=== PATIENT | female | born 1995 | race Caucasian/White ===

== ENCOUNTER → 2022-07-25 | Outpatient (CLI) | payer OTHER ==
[~2022-07-25] MED LIST: FLUO10 PO; ONDA4 PO
[2022-07-27 08:12] LABS: CHLAMYDIA TRACHOMATIS, NAA Negative (Negative)
== END | disposition home or self-care (01) ==
LOC: LAB SHORT 10:40 → LAB 10:40
PROVIDERS: Registered Nurse Community Health
DX: Z34.01 Encounter for supervision of normal first pregnancy, first trimester (principal)
CPT/HCPCS: 87491; 87591

== ENCOUNTER 2022-08-03 03:23 | Day surgery (SDC) | payer OTHER ==
[2022-08-03] MEDS ORDERED: FLUO10 PO (11:28)
[2022-08-03] MEDS ORDERED: ONDA4 PO (11:29)
== END 2022-08-03 10:40 | disposition home or self-care (01) ==
LOC: ATC 03:23
DX: R11.2 Nausea with vomiting, unspecified (principal)
CPT/HCPCS: 96360; C1751; J7120

== ENCOUNTER 2022-08-09 02:41 | Day surgery (SDC) | payer OTHER ==
[~2022-08-09 02:41] MED LIST changes: +METO10 PO; +Phenergan25 M1 PO
== END 2022-08-09 12:15 | disposition home or self-care (01) ==
LOC: ATC 02:41
DX: R11.2 Nausea with vomiting, unspecified (principal)
CPT/HCPCS: 96360; J7120

== ENCOUNTER 2022-08-12 01:59 | Day surgery (SDC) | payer OTHER ==
--- NOTE | 2022-08-11 11:46 | NUR ---
PT RESCHEDULED HER APPOINTMENT FOR TOMORROW AT 0800.
== END 2022-08-12 09:15 | disposition home or self-care (01) ==
LOC: ATC 01:59
DX: O21.0 Mild hyperemesis gravidarum (principal); Z3A.00 Weeks of gestation of pregnancy not specified
CPT/HCPCS: 96360; J7120

== ENCOUNTER 2022-08-14 01:53 | Day surgery (SDC) | payer OTHER | END 2022-08-14 09:04 | disposition home or self-care (01) | DX: O21.0 Mild hyperemesis gravidarum (principal); O99.340 Other mental disorders complicating pregnancy, unspecified trimester; F32.A Depression, unspecified; Z3A.00 Weeks of gestation of pregnancy not specified ==

== ENCOUNTER 2022-08-16 00:18 | Day surgery (SDC) | payer OTHER | END 2022-08-16 15:12 | disposition home or self-care (01) | LOC: ATC 00:18 | DX: O21.0 Mild hyperemesis gravidarum (principal); Z3A.00 Weeks of gestation of pregnancy not specified; F32.A Depression, unspecified; O99.342 Other mental disorders complicating pregnancy, second trimester | CPT/HCPCS: 96361; 96374; J2765; J7120 ==

== ENCOUNTER 2022-08-18 00:16 | Day surgery (SDC) | payer OTHER ==
[2022-08-19] MEDS ORDERED: PROC5 PO (02:45)
== END 2022-08-18 15:41 | disposition home or self-care (01) ==
LOC: ATC 00:16
DX: O21.0 Mild hyperemesis gravidarum (principal); Z3A.00 Weeks of gestation of pregnancy not specified; O99.343 Other mental disorders complicating pregnancy, third trimester; F32.A Depression, unspecified
CPT/HCPCS: 96361; 96374; J2765; J7120

== ENCOUNTER 2022-08-18 23:28 | Emergency (ER) | payer OTHER ==
[~2022-08-18] VITALS: Ht 177.8 cm; Wt 104.3 kg
[2022-08-19 01:09] LABS: BASOPHILS ABSOLUTE AUTO 0.03 K/mm3 (0.00-0.23); BASOPHILS PERCENT AUTO 0 % (0-2); EOSINOPHILS ABSOLUTE AUTO 0.07 K/mm3 (0.00-0.68); EOSINOPHILS PERCENT AUTO 1 % (0-6); Hematocrit 35.7 % (33.0-51.0); Hemoglobin 12.4 g/dL (11.5-16.0); IMMATURE GRAN ABSOLUTE AUTO 0.05 K/mm3 (0.00-0.10); IMMATURE GRAN PERCENT AUTO 1 % (0-1); LYMPHOCYTES ABSOLUTE AUTO 1.58 K/mm3 (0.84-5.20); LYMPHOCYTES PERCENT AUTO 18 % (21-46); MONOCYTES ABSOLUTE AUTO 0.47 K/mm3 (0.16-1.47); MONOCYTES PERCENT AUTO 6 % (4-13); Mean Corpuscular HGB 30.5 pg (26.0-34.0); Mean Corpuscular HGB Conc 34.7 g/dL (31.5-36.5); Mean Corpuscular Volume 88 fL (80-100); Mean Platelet Volume 10.8 fL (9.1-12.4); NEUTROPHILS ABSOLUTE AUTO 6.37 K/mm3 (1.96-9.15); NEUTROPHILS PERCENT AUTO 74 % (41-73); Platelet Count 160 K/mm3 (150-400); RDW Coefficient Variation 13.6 % (11.7-14.2); RDW Standard Deviation 43.8 fL (35.1-46.3); Red Blood Cell Count 4.06 M/mm3 (3.80-5.20); White Blood Cell Count 8.57 K/mm3 (4.00-11.30)
[2022-08-19 01:25] LABS: Bun/Creatinine Ratio 20.1 (12.0-20.0); Calcium, Blood 9.3 mg/dL (8.5-10.1); Creatinine, Blood 0.55 mg/dL (0.40-1.00); Magnesium, Blood 1.8 mg/dL (1.6-2.4); Potassium, Blood 3.9 mmol/L (3.5-5.5)
[2022-08-19] MEDS ORDERED: PROC5 PO (02:45)
== END 2022-08-19 03:12 | disposition home or self-care (01) ==
LOC: ER 23:28
PROVIDERS: Emergency Medicine
DX: O21.1 Hyperemesis gravidarum with metabolic disturbance (principal); E86.0 Dehydration; Z3A.12 12 weeks gestation of pregnancy
CPT/HCPCS: 36415; 80048; 83735; 85025; J0780; J7120

== ENCOUNTER 2022-08-21 01:31 | Day surgery (SDC) | payer OTHER ==
[~2022-08-21 01:31] MED LIST changes: +PROC5 PO
== END 2022-08-21 11:40 | disposition home or self-care (01) ==
LOC: ATC 01:31
DX: O21.0 Mild hyperemesis gravidarum (principal); Z3A.00 Weeks of gestation of pregnancy not specified
CPT/HCPCS: 96361; 96374; J2765; J7120

== ENCOUNTER 2022-08-23 00:47 | Day surgery (SDC) | payer OTHER | END 2022-08-23 10:33 | disposition home or self-care (01) | LOC: ATC 00:47 | DX: O21.0 Mild hyperemesis gravidarum (principal); Z3A.00 Weeks of gestation of pregnancy not specified | CPT/HCPCS: J2765; J7120 ==

== ENCOUNTER 2022-08-25 00:17 | Day surgery (SDC) | payer OTHER | END 2022-08-25 10:40 | disposition home or self-care (01) | LOC: ATC 00:17 | DX: O21.0 Mild hyperemesis gravidarum (principal); Z3A.00 Weeks of gestation of pregnancy not specified; O99.342 Other mental disorders complicating pregnancy, second trimester; F32.A Depression, unspecified | CPT/HCPCS: J2765; J7120 ==

== ENCOUNTER 2022-08-28 13:15 | Day surgery (SDC) | payer OTHER | END 2022-08-28 14:50 | disposition home or self-care (01) | LOC: ATC 13:15 | DX: O21.0 Mild hyperemesis gravidarum (principal); O99.340 Other mental disorders complicating pregnancy, unspecified trimester; F32.A Depression, unspecified; Z3A.00 Weeks of gestation of pregnancy not specified | CPT/HCPCS: 96361; 96374; J2765; J7120 ==

== ENCOUNTER → 2022-08-29 | Outpatient (CLI) | payer OTHER | END | disposition home or self-care (01) | LOC: LAB SHORT 08:40 → LAB 08:40 | DX: Z34.01 Encounter for supervision of normal first pregnancy, first trimester (principal) | CPT/HCPCS: 87086 ==

== ENCOUNTER 2022-08-30 02:02 | Day surgery (SDC) | payer OTHER | END 2022-08-30 14:37 | disposition home or self-care (01) | LOC: ATC 02:02 | DX: O21.0 Mild hyperemesis gravidarum (principal); Z3A.00 Weeks of gestation of pregnancy not specified; O99.340 Other mental disorders complicating pregnancy, unspecified trimester; F32.A Depression, unspecified | CPT/HCPCS: 96361; 96374; J2765; J7120 ==

== ENCOUNTER 2022-09-01 02:25 | Day surgery (SDC) | payer OTHER | END 2022-09-01 16:41 | disposition home or self-care (01) | LOC: ATC 02:25 | DX: O21.0 Mild hyperemesis gravidarum (principal); Z3A.00 Weeks of gestation of pregnancy not specified; O99.340 Other mental disorders complicating pregnancy, unspecified trimester; F32.A Depression, unspecified | CPT/HCPCS: 96361; 96374; J2765; J7120 ==

== ENCOUNTER → 2022-09-29 | Outpatient (CLI) | payer OTHER ==
[2022-09-29 12:44] LABS: Source, Urine Clean Catch
[2022-09-29 13:36] LABS: Appearance, Urine Hazy (Clear); Bilirubin, Urine Neg (Neg); Blood, Urine 2+ (Neg); Color, Urine Yellow (P-Yellow); Glucose Qualitative, Urine Neg (Neg); Ketones, Urine Neg (Neg); Leukocyte Esterase, Urine 3+ (Neg); Nitrite, Urine Pos (Neg); Protein, Urine 1+ (Neg); Urobilinogen, Urine NORM (Normal)
[2022-09-29 13:56] LABS: Bacteria Many /hpf; Squamous Epithelial Cells Mod /hpf (Few)
[2022-09-29 13:57] LABS: Mucus Light (0-Heavy)
== END | disposition home or self-care (01) ==
LOC: LAB SHORT 12:42
PROVIDERS: Registered Nurse Community Health
DX: Z34.01 Encounter for supervision of normal first pregnancy, first trimester (principal)
CPT/HCPCS: 81001; 87086

== ENCOUNTER → 2022-12-06 | Outpatient (CLI) | payer OTHER ==
[2022-12-06 14:28] LABS: Hemoglobin 11.2 g/dL (11.5-16.0)
== END | disposition home or self-care (01) ==
LOC: LAB SHORT 10:10 → LAB 10:10
PROVIDERS: Registered Nurse Community Health
DX: Z34.01 Encounter for supervision of normal first pregnancy, first trimester (principal)
CPT/HCPCS: 82950; 85014; 85018

== ENCOUNTER → 2023-01-09 | Outpatient (CLI) | payer OTHER ==
[2023-01-09 15:43] LABS: BASOPHILS ABSOLUTE AUTO 0.01 K/mm3 (0.00-0.23); BASOPHILS PERCENT AUTO 0 % (0-2); EOSINOPHILS ABSOLUTE AUTO 0.03 K/mm3 (0.00-0.68); EOSINOPHILS PERCENT AUTO 0 % (0-6); Hematocrit 30.4 % (33.0-51.0); IMMATURE GRAN ABSOLUTE AUTO 0.05 K/mm3 (0.00-0.10); IMMATURE GRAN PERCENT AUTO 1 % (0-1); LYMPHOCYTES PERCENT AUTO 17 % (21-46); MONOCYTES ABSOLUTE AUTO 0.53 K/mm3 (0.16-1.47); MONOCYTES PERCENT AUTO 8 % (4-13); Mean Corpuscular HGB 29.3 pg (26.0-34.0); Mean Corpuscular HGB Conc 32.9 g/dL (31.5-36.5); Mean Corpuscular Volume 89 fL (80-100); NEUTROPHILS ABSOLUTE AUTO 4.96 K/mm3 (1.96-9.15); NEUTROPHILS PERCENT AUTO 74 % (41-73); RDW Coefficient Variation 14.5 % (11.7-14.2); RDW Standard Deviation 46.2 fL (35.1-46.3); Red Blood Cell Count 3.41 M/mm3 (3.80-5.20); White Blood Cell Count 6.68 K/mm3 (4.00-11.30)
[2023-01-09 16:47] LABS: Albumin, Blood 2.9 g/dL (3.4-5.0); Albumin/Globulin Ratio 0.7 (0.8-1.8); Bilirubin, Total 0.3 mg/dL (0.1-1.0); Calcium, Blood 9.3 mg/dL (8.5-10.1); Creatinine, Blood 0.53 mg/dL (0.40-1.00); Globulin, Blood 3.9 g/dL (2.2-4.0); Total Protein, Blood 6.8 g/dL (6.4-8.2)
== END | disposition home or self-care (01) ==
LOC: LAB SHORT 12:53
PROVIDERS: Registered Nurse Community Health
DX: R53.83 Other fatigue (principal); N39.8 Other specified disorders of urinary system
CPT/HCPCS: 80053; 85025

== ENCOUNTER → 2023-01-17 | Outpatient (CLI) | payer OTHER ==
[2023-01-17 15:09] LABS: Percent Saturation 10.9 % (15.0-50.0)
== END | disposition home or self-care (01) ==
LOC: LAB 13:02 → LAB SHORT 13:02
PROVIDERS: Registered Nurse Community Health
DX: O99.019 Anemia complicating pregnancy, unspecified trimester (principal)
CPT/HCPCS: 82728; 83540; 83550

== ENCOUNTER → 2023-02-05 | Outpatient (CLI) | payer OTHER | END | disposition home or self-care (01) | LOC: LAB 12:57 → LAB SHORT 12:57 | DX: Z34.83 Encounter for supervision of other normal pregnancy, third trimester (principal) | CPT/HCPCS: 87081; 87150 ==

== ENCOUNTER 2023-02-07 07:07 | Inpatient (IN) | payer OTHER ==
[2023-02-07] VITALS (7 sets, daily range): BP systolic 107–135; BP diastolic 51–73
[~2023-02-07] VITALS: Ht 177.8 cm; Wt 122.4 kg
--- NOTE | 2023-02-07 11:14 | NUR ---
SHAGGY PITTMAN IN ROOM
[2023-02-07 11:37] LABS: BASOPHILS ABSOLUTE AUTO 0.02 K/mm3 (0.00-0.23); BASOPHILS PERCENT AUTO 0 % (0-2); EOSINOPHILS ABSOLUTE AUTO 0.03 K/mm3 (0.00-0.68); EOSINOPHILS PERCENT AUTO 0 % (0-6); Hematocrit 28.8 % (33.0-51.0); Hemoglobin 9.3 g/dL (11.5-16.0); IMMATURE GRAN ABSOLUTE AUTO 0.09 K/mm3 (0.00-0.10); IMMATURE GRAN PERCENT AUTO 1 % (0-1); LYMPHOCYTES ABSOLUTE AUTO 1.19 K/mm3 (0.84-5.20); LYMPHOCYTES PERCENT AUTO 15 % (21-46); MONOCYTES ABSOLUTE AUTO 0.44 K/mm3 (0.16-1.47); MONOCYTES PERCENT AUTO 6 % (4-13); Mean Corpuscular HGB 28.4 pg (26.0-34.0); Mean Corpuscular HGB Conc 32.3 g/dL (31.5-36.5); Mean Corpuscular Volume 88 fL (80-100); Mean Platelet Volume 11.6 fL (9.1-12.4); NEUTROPHILS ABSOLUTE AUTO 5.96 K/mm3 (1.96-9.15); NEUTROPHILS PERCENT AUTO 77 % (41-73); Platelet Count 109 K/mm3 (150-400); RDW Coefficient Variation 15.5 % (11.7-14.2); RDW Standard Deviation 49.1 fL (35.1-46.3); Red Blood Cell Count 3.28 M/mm3 (3.80-5.20); White Blood Cell Count 7.73 K/mm3 (4.00-11.30)
[2023-02-08] VITALS (31 sets, daily range): BP systolic 98–137; BP diastolic 50–82
[2023-02-09] VITALS (7 sets, daily range): BP systolic 108–130; BP diastolic 56–77
[2023-02-09 05:55] LABS: BASOPHILS ABSOLUTE AUTO 0.02 K/mm3 (0.00-0.23); BASOPHILS PERCENT AUTO 0 % (0-2); EOSINOPHILS ABSOLUTE AUTO 0.03 K/mm3 (0.00-0.68); EOSINOPHILS PERCENT AUTO 0 % (0-6); Hematocrit 25.3 % (33.0-51.0); Hemoglobin 8.2 g/dL (11.5-16.0); IMMATURE GRAN ABSOLUTE AUTO 0.07 K/mm3 (0.00-0.10); IMMATURE GRAN PERCENT AUTO 1 % (0-1); LYMPHOCYTES ABSOLUTE AUTO 1.48 K/mm3 (0.84-5.20); LYMPHOCYTES PERCENT AUTO 15 % (21-46); MONOCYTES ABSOLUTE AUTO 0.67 K/mm3 (0.16-1.47); MONOCYTES PERCENT AUTO 7 % (4-13); Mean Corpuscular HGB 28.2 pg (26.0-34.0); Mean Corpuscular HGB Conc 32.4 g/dL (31.5-36.5); Mean Corpuscular Volume 87 fL (80-100); Mean Platelet Volume 11.8 fL (9.1-12.4); NEUTROPHILS PERCENT AUTO 77 % (41-73); Platelet Count 122 K/mm3 (150-400); RDW Coefficient Variation 15.7 % (11.7-14.2); RDW Standard Deviation 48.7 fL (35.1-46.3); Red Blood Cell Count 2.91 M/mm3 (3.80-5.20); White Blood Cell Count 9.67 K/mm3 (4.00-11.30)
--- NOTE | 2023-02-09 08:30 | NUR ---
PT DENIES ANY SUICIDAL IDEATION OR HARM TO HERSELF OR HER BABY. SHE STATES " SOON I KNEW I WAS BEING INDUCED I HAVE BEEN FINE."
--- NOTE | 2023-02-09 14:00 | NUR ---
report to susan obrien rn to assume care of pt
--- NOTE | 2023-02-09 19:10 | NUR ---
REPT TO PM SHIFT
[2023-02-10 06:02] VITALS: BP 105/61
[2023-02-10 07:41] VITALS: BP 118/65
--- NOTE | 2023-02-10 10:07 | NUR ---
SB FROM [facility]ARE [facility]NAGEMENT ON UNIT. DISCUSSED ELLIOT ON ADMISSION AND HER PLAN TO TAKE PILLS IF SHE DID NOT STAY TO BE INDUCED. CPS AT BS NOW AND THEN SB WILL GO IN AND HAVE DISCUSSION WITH PATIENT.
[2023-02-10] MEDS ORDERED: PRENATAL TABLE1 EAC2 PO (12:11)
[2023-02-10] MEDS ORDERED: IBUP800 PO (12:12)
--- NOTE | 2023-02-10 12:21 | NUR ---
PER SB FROM [employer] ELLIOT IS AWARE OF ALL THE RESOURCES SHE NEEDS AND HAS FOLLOW UP WITH [facility] SUNDAY. OK TO DC HOME WITH BABY
[2023-02-10 12:46] VITALS: BP 121/61
--- NOTE | 2023-02-10 12:57 | NUR ---
patient given extensive written and verbal discharge insructions. pt verbalizes she has no suicidal ideation or harmful thoughts to baby and has the resources she needs from social service technician today and cps will be following up with her sunday as well. she will see jennifer guy within 1-2 weeks and also has a ppfu here at [facility] sunday at 1000 am. formula given for supplementation as requested. all questions answered. discharged hme with .
== END 2023-02-10 13:03 | disposition home or self-care (01) | DRG 807 ==
LOC: BC 07:07 → OBS 07:07 → BC 07:09 → OBS 09:30 → BC 09:32
PROVIDERS: Family Medicine; ADMIT Family Medicine
PROC: 10E0XZZ Delivery of Products of Conception, External Approach (ICD-10-PCS; principal; 2023-02-08)
PROC: 0KQM0ZZ Repair Perineum Muscle, Open Approach (ICD-10-PCS; 2023-02-08)
PROC: 10D17Z9 Manual Extraction of Products of Conception, Retained, Via Natural or Artificial Opening (ICD-10-PCS; 2023-02-08)
PROC: 3E0R3BZ Introduction of Anesthetic Agent into Spinal Canal, Percutaneous Approach (ICD-10-PCS; 2023-02-08)
PROC: 00HU33Z Insertion of Infusion Device into Spinal Canal, Percutaneous Approach (ICD-10-PCS; 2023-02-08)
PROC: 10907ZC Drainage of Amniotic Fluid, Therapeutic from Products of Conception, Via Natural or Artificial Opening (ICD-10-PCS; 2023-02-08)
DX: O24.429 Gestational diabetes mellitus in childbirth, unspecified control (principal); Z37.0 Single live birth; O99.344 Other mental disorders complicating childbirth; F41.8 Other specified anxiety disorders; O69.1XX0 Labor and delivery complicated by cord around neck, with compression, not applicable or unspecified; O70.1 Second degree perineal laceration during delivery; Z3A.37 37 weeks gestation of pregnancy; Z79.899 Other long term (current) drug therapy
CPT/HCPCS: 36415; 51702; 82947; 85025; 85460; 86850; 86870; 86900; 86901; 96372; A9270; J0290; J0690; J1885; J2590; J3010; J7120

== ENCOUNTER 2023-05-03 04:26 | Emergency (ER) | payer OTHER ==
[~2023-05-03] VITALS: Ht 177.8 cm; Wt 108.9 kg
[~2023-05-03 04:26] MED LIST changes: +IBUP800 PO; +PRENATAL TABLE1 EAC2 PO
[2023-05-03 04:46] VITALS: BP 118/91
[2023-05-03 04:48] LABS: Source, Urine Clean Catch
[2023-05-03 04:50] LABS: Bilirubin, Urine Neg (Neg); Blood, Urine 5+ (Neg); Color, Urine Pale Yellow (P-Yellow); Glucose Qualitative, Urine Neg (Neg); Ketones, Urine Neg (Neg); Leukocyte Esterase, Urine 3+ (Neg); Nitrite, Urine Neg (Neg); Protein, Urine 3+ (Neg); Specific Gravity, Urine 1.015 (1.003-1.022); Urobilinogen, Urine NORM (Normal)
[2023-05-03 04:51] LABS: Appearance, Urine Cloudy (Clear)
[2023-05-03 04:57] LABS: Hyaline Casts 0-2 /lpf (0-2); White Blood Cells, Urine 50-100 /hpf (0-5)
[2023-05-03 04:58] LABS: Bacteria Mod /hpf; Squamous Epithelial Cells Mod /hpf (Few); Transitional Epithelial Cells Few /hpf (0-Rare)
[2023-05-03] MEDS ORDERED: ONDA4ODT MM (05:15)
[2023-05-03] MEDS ORDERED: SULTRIDS PO (05:15)
== END 2023-05-03 05:29 | disposition home or self-care (01) ==
LOC: ER 04:26
PROVIDERS: Student in an Organized Health Care Education/Training Program
DX: N30.00 Acute cystitis without hematuria (principal)
CPT/HCPCS: 81001; 87077; 87086; 87186; 99283; A9270

== ENCOUNTER 2023-10-11 06:46 | Day surgery (SDC) | payer OTHER ==
[2023-10-11] VITALS (13 sets, daily range): BP systolic 98–130; BP diastolic 70–82
[~2023-10-11] VITALS: Ht 177.8 cm; Wt 104.7 kg
[~2023-10-11 06:46] MED LIST changes: +ONDA4ODT MM; +SULTRIDS PO
[2023-10-11] MEDS ORDERED: BUSP10 PO (07:14)
[2023-10-11] MEDS ORDERED: Prozac40 MG PO (07:14)
--- NOTE | 2023-10-11 07:50 | NUR ---
Ambulatory in Day Surgery History, Chart, Medications and Allergies reviewed before start of procedure. Pre-Op teaching done. Pt verbalizes understanding.
[2023-10-11 12:11] LABS: Performing Lab BLOODWORKS
--- NOTE | 2023-10-11 12:30 | NUR ---
ARRIVAL TO SURGICAL UNIT VIA GOURNEY. 4 PERSON ASSIST TO HOSPITAL BED. ASSESSMENT CHARTED. MORALES PAD IN PLACE. NO BLOOD NOTED. DENIES N/V. SNACKS & DRINKS GIVEN BUT PT REPORTS WANTING TO SLEEP. LIGHTS DIMMED.
--- NOTE | 2023-10-11 16:02 | NUR ---
ABD BINDER APPLIED
[2023-10-11] MEDS ORDERED: IBUP400 PO (16:58)
[2023-10-11] MEDS ORDERED: Percocet 5-3251 EACH PO (16:59)
[2023-10-11] MEDS ORDERED: PROM25 PO (17:01)
[2023-10-11] MEDS ORDERED: SIME80CH PO (17:01)
--- NOTE | 2023-10-11 17:23 | NUR ---
DISCHARGE EATING, DRINKING, VOIDING WELL. PAIN WELL CONTROLLED. PLEASANT & COOPERATIVE. NO DIZZINESS OR LIGHTHEADEDNESS w/ AMBULATION. HAS RX's AT HOME. SURG SITE WNL AT SC w/ NO LALO. ESCORTED OUT VIA WC.
[2023-10-16 09:07] LABS: Test Name ABID
[2023-10-16 09:08] LABS: Result SEE REPORT
== END 2023-10-11 17:25 | disposition home or self-care (01) ==
LOC: ORSCMMR 06:46 → ORD 08:00 → ORSCMMR 08:00 → SURS 11:50 → ORSCMMR 17:25
PROVIDERS: Obstetrics & Gynecology
PROC: 0UT7FZZ Resection of Bilateral Fallopian Tubes, Via Natural or Artificial Opening With Percutaneous Endoscopic Assistance (ICD-10-PCS; principal; 2023-10-11 08:00)
PROC: 0UT9FZZ Resection of Uterus, Via Natural or Artificial Opening With Percutaneous Endoscopic Assistance (ICD-10-PCS; principal; 2023-10-11 08:00)
PROC: 0U5F4ZZ Destruction of Cul-de-sac, Percutaneous Endoscopic Approach (ICD-10-PCS; principal; 2023-10-11 08:00)
DX: N92.0 Excessive and frequent menstruation with regular cycle (principal); N94.6 Dysmenorrhea, unspecified; N94.10 Unspecified dyspareunia; R10.2 Pelvic and perineal pain; D50.0 Iron deficiency anemia secondary to blood loss (chronic)
CPT/HCPCS: 86850; 86870; 86880; 86900; 86901; 88307; A9270; J0690; J1100; J1170; J1885; J2405; J2704; J2795; J3010; J7120